=== PATIENT | male | born 1970 | race Two or more races ===

== ENCOUNTER 2018-12-01 23:32 | Inpatient (IN) | payer OTHER ==
[~2018-12-01] VITALS: Ht 182.9 cm; Wt 88.0 kg
[2018-12-01] MEDS ORDERED: LANTUS SOL100 UNIT/1 (23:53)
[2018-12-01] MEDS ORDERED: HUMALOG100 UNIT/1 (23:54)
[2018-12-01] MEDS ORDERED: COZAAR50 MG (23:54)
--- NOTE | 2018-12-01 23:55 | NUR ---
PTE REFIERE CELULITIS EN EL PRIMER DEDO DE LA PIERNA IZQUIERDA . SE OBSERVA CALIENTE AL TACTO ,DEVYN EDEMATOSA Y EL DEDO NEGROTISADO. SE LEREALIZA DXT LA CUAL SALE >500 Y PRECION DIANA MANUAL.
--- NOTE | 2018-12-02 01:59 | NUR ---
EVALUA PTE. SE ORIENTA A PTE SOBRE TX MEDICO. PTE REFIERE COMPRENDER. SE REALIZAN MUESTRAS DE LABORATORIO BAJO MEDIDAS ASEPTICAS. SE ADMINISTRAN MEDICAMENTOS JUDITH ORDEN MEDICA. PROCEDIMIENTOS LLEVADOS A CABO POR .
--- NOTE | 2018-12-02 08:15 | NUR ---
SE RECIBE PTE DEL TURNO ANTERIOR, ALERTA Y ORIENTADO X 3 ESFERAS, EN RADHA NIVEL MAS BAJO HAHN DE IDENTIFICACION Y BARANDAS ELEVADAS POR PRECAUCION. SE OBSERVA CON BUEN PATRON RESPIRATORIO Y PIEL TIBIA AL TACTO. H/L PATENTE Y STEWART DE EDEMA O ERITEMA. PTE PENDIENTE A CONSULTA CON DR Leticia PRUETT. DXT 62MG/DL, NOTIFICADO A DRA HERRERA QUIEN ORDENA KALI DIETA DIABETICA. SE MANTIENE BAJO OBSERVACION.
--- NOTE | 2018-12-02 16:42 | NUR ---
SE RECIBE PTE ALERTA Y ORIENTADO X3 EN CAMA CON BARANDAS ELEVADAS. SE RECIBE PTE CANALIZADO AREA STEWART DE EDEMA Y DE ENROJECIMIENTO. PTE EN ESPERA DE CONSULTA CON MEDICINA INTERNA.
== END 2018-12-15 13:35 | disposition designated cancer center or children's hospital (05) | DRG 616 ==
LOC: ER 23:32 → SEC-K 12-02 17:00 → MEDI 12-02 17:00
PROVIDERS: Specialist; ADMIT Internal Medicine
PROC: BQ3PZZZ Magnetic Resonance Imaging (MRI) of Right Toe(s) (ICD-10-PCS; 2018-12-02)
PROC: BT4JZZZ Ultrasonography of Kidneys and Bladder (ICD-10-PCS; 2018-12-03)
PROC: 0JBQ0ZZ Excision of Right Foot Subcutaneous Tissue and Fascia, Open Approach (ICD-10-PCS; 2018-12-05)
PROC: 0JDQ0ZZ Extraction of Right Foot Subcutaneous Tissue and Fascia, Open Approach (ICD-10-PCS; 2018-12-05)
PROC: 0Y6P0Z3 Detachment at Right 1st Toe, Low, Open Approach (ICD-10-PCS; principal; 2018-12-05 19:45)
PROC: 4A12X4Z Monitoring of Cardiac Electrical Activity, External Approach (ICD-10-PCS; 2018-12-11)
PROC: B246ZZZ Ultrasonography of Right and Left Heart (ICD-10-PCS; 2018-12-12)
PROC: 3E0F7GC Introduction of Other Therapeutic Substance into Respiratory Tract, Via Natural or Artificial Opening (ICD-10-PCS; 2018-12-14)
DX: E11.621 Type 2 diabetes mellitus with foot ulcer (principal); G37.4 Subacute necrotizing myelitis of central nervous system; I21.4 Non-ST elevation (NSTEMI) myocardial infarction; I50.43 Acute on chronic combined systolic (congestive) and diastolic (congestive) heart failure; M86.171 Other acute osteomyelitis, right ankle and foot; E11.52 Type 2 diabetes mellitus with diabetic peripheral angiopathy with gangrene; I96 Gangrene, not elsewhere classified; I13.0 Hypertensive heart and chronic kidney disease with heart failure and stage 1 through stage 4 chronic kidney disease, or unspecified chronic kidney disease; L97.513 Non-pressure chronic ulcer of other part of right foot with necrosis of muscle; Z79.4 Long term (current) use of insulin; N17.8 Other acute kidney failure; I11.9 Hypertensive heart disease without heart failure; Z88.0 Allergy status to penicillin; B96.5 Pseudomonas (aeruginosa) (mallei) (pseudomallei) as the cause of diseases classified elsewhere; E11.65 Type 2 diabetes mellitus with hyperglycemia; E11.22 Type 2 diabetes mellitus with diabetic chronic kidney disease; N18.2 Chronic kidney disease, stage 2 (mild); D72.828 Other elevated white blood cell count; D63.1 Anemia in chronic kidney disease; Z74.01 Bed confinement status; B95.1 Streptococcus, group B, as the cause of diseases classified elsewhere
CPT/HCPCS: 73221